=== PATIENT | female | born 1950 | race Two or more races ===

== ENCOUNTER 2020-11-13 13:32 | Emergency (ER) | payer BC ==
[~2020-11-13] VITALS: Ht 152.4 cm; Wt 53.4 kg
[2020-11-13 13:49] VITALS: BP 145/81
[2020-11-13] MEDS ORDERED: ketorolac tromethamine 15mg/ml inj. IM ONE (15:30)
== END 2020-11-13 15:55 | disposition home or self-care (01) ==
LOC: ER 13:32
DX: M54.5 Low back pain (principal); Z88.5 Allergy status to narcotic agent; Z91.013 Allergy to seafood
CPT/HCPCS: 96372; 99283; J1885; 99285

== ENCOUNTER 2022-01-22 16:27 | Emergency (ER) | payer BC ==
[~2022-01-22] VITALS: Ht 152.4 cm; Wt 54.0 kg
[2022-01-22] MEDS ORDERED: iohexol 350MG/ML 100ml bottle IV ONE (17:09)
[2022-01-22 18:54] VITALS: BP 143/98
== END 2022-01-22 18:55 | disposition home or self-care (01) ==
LOC: ER 16:28
DX: R51.9 Headache, unspecified (principal); R11.0 Nausea; R10.84 Generalized abdominal pain; R20.0 Anesthesia of skin; Z85.9 Personal history of malignant neoplasm, unspecified; Z88.5 Allergy status to narcotic agent; Z91.013 Allergy to seafood
CPT/HCPCS: 70450; 70496; 70498; 99285; Q9967

== ENCOUNTER 2022-08-14 11:47 | Emergency (ER) | payer BC ==
[~2022-08-14] VITALS: Ht 152.4 cm; Wt 57.0 kg
[2022-08-14 12:37] VITALS: BP 133/76
[2022-08-14 13:19] LABS: BASOPHILS # (AUTO) 0.1 X10'3 (0-0.2); BASOPHILS % (AUTO) 0.9 % (0-1); EOSINOPHILS # (AUTO) 0.3 X10'3 (0-0.9); EOSINOPHILS % (AUTO) 4.6 % (0-6); HEMATOCRIT 39.5 % (35.0-45.0); HEMOGLOBIN 13.2 g/dl (12.0-16.0); LYMPHOCYTES % (AUTO) 37.6 % (21-51); MEAN CORPUSCULAR HEMOGLOBIN 30.9 PG (27.0-31.0); MEAN CORPUSCULAR HGB CONC 33.4 g/dL (33.0-36.5); MEAN CORPUSCULAR VOLUME 92.5 FL (78-98); MEAN PLATELET VOLUME 8.1 FL (7.4-10.4); MONOCYTES # (AUTO) 0.6 X10'3 (0-0.9); MONOCYTES % (AUTO) 10.8 % (2-12); NEUTROPHILS # (AUTO) 2.5 X10'3 (1.8-7.7); NEUTROPHILS % (AUTO) 46.1 % (42-75); PLATELET COUNT 287 X10'3 (140-440); RED BLOOD COUNT 4.27 X10'6 (4.20-5.60); RED CELL DISTRIBUTION WIDTH 13.3 % (11.5-14.5); WHITE BLOOD COUNT 5.4 X10'3 (4.5-11.0)
[2022-08-14 13:25] LABS: ALANINE AMINOTRANSFERASE 33 U/L (12-78); ALBUMIN 3.9 G/DL (3.4-5.0); ALBUMIN/GLOBULIN RATIO 0.9 (1.1-1.5); ALKALINE PHOSPHATASE 72 IU/L (46-116); ANION GAP 6 (8-16); ASPARTATE AMINO TRANSFERASE 25 U/L (10-37); BILIRUBIN,TOTAL 0.5 MG/DL (0.1-1.0); BLOOD UREA NITROGEN 17 MG/DL (7-18); CALCIUM 9.4 MG/DL (8.5-10.1); CHLORIDE 104 MMOL/L (99-107); CREATININE 0.81 MG/DL (0.40-0.90); GLUCOSE 102 MG/DL (70-104); SODIUM 140 MMOL/L (135-145); TOTAL CARBON DIOXIDE 30.4 MMOL/L (24-32); TOTAL PROTEIN 8.3 G/DL (6.4-8.2); eGFR 70 ML/MIN
[2022-08-14 13:29] LABS: CLARITY,URINE SLIGHTLY CLOUDY (Clear); COLOR,URINE YELLOW (Yellow); GLUCOSE, URINE NEGATIVE (Neg); KETONES,URINE NEGATIVE (Neg); LEUKOCYTE ESTERASE ,URINE LARGE (Neg); NITRITES, URINE POSITIVE (Neg); OCCULT BLOOD,URINE TRACE-INTACT (Neg); PROTEIN,URINE NEGATIVE (Neg); UROBILINOGEN,URINE 0.2 E.U/dL (0.2-1.0)
[2022-08-14 13:30] LABS: UA COLLECTION TYPE CLN CATCH MIDSTREAM
[2022-08-14 13:36] LABS: SQUAMOUS EPITHELIAL CELL,UR FEW /LPF (FEW)
[2022-08-14 13:37] LABS: WBC,URINE TNTC /HPF (0-4)
[2022-08-14 13:38] LABS: BACTERIA,URINE 4+ /HPF (Neg); RBC,URINE 0-2 /HPF (0-2); WBC CLUMPS,URINE FEW /HPF (NEGATIVE)
[2022-08-14] MEDS ORDERED: AMOX-117 PO ×3 (15:05→16:35)
== END 2022-08-14 15:52 | disposition home or self-care (01) ==
LOC: ER 11:47
DX: N39.0 Urinary tract infection, site not specified (principal); Z88.5 Allergy status to narcotic agent; Z91.013 Allergy to seafood
CPT/HCPCS: 36415; 80053; 81001; 85025; 87077; 87088; 87186; 99283

== ENCOUNTER 2023-01-06 12:15 | Emergency (ER) | payer OTHER, BC ==
[~2023-01-06] VITALS: Ht 152.4 cm; Wt 57.6 kg
[~2023-01-06 12:15] MED LIST: AMOX-117 PO
[2023-01-06] MEDS ORDERED: HYDR-3965 PO (14:27)
[2023-01-06 15:09] VITALS: BP 140/87
== END 2023-01-06 15:11 | disposition home or self-care (01) ==
LOC: ER 12:16
DX: R07.89 Other chest pain (principal); R91.8 Other nonspecific abnormal finding of lung field; I10 Essential (primary) hypertension; Z88.5 Allergy status to narcotic agent; Z79.899 Other long term (current) drug therapy; Z91.013 Allergy to seafood
CPT/HCPCS: 71045; 99283

== ENCOUNTER 2023-02-16 15:13 | Emergency (ER) | payer BC, MEDICAID ==
[~2023-02-16] VITALS: Ht 152.4 cm; Wt 60.0 kg
[2023-02-16 17:51] VITALS: BP 140/78
== END 2023-02-16 20:17 | disposition home or self-care (01) ==
LOC: ER 15:13
DX: S22.20XG Unspecified fracture of sternum, subsequent encounter for fracture with delayed healing (principal); I10 Essential (primary) hypertension; Z88.5 Allergy status to narcotic agent; Z91.013 Allergy to seafood; Z79.899 Other long term (current) drug therapy; X58.XXXD Exposure to other specified factors, subsequent encounter
CPT/HCPCS: 71250; 99284

== ENCOUNTER 2023-02-25 09:33 | Emergency (ER) | payer BC, MEDICAID ==
[~2023-02-25] VITALS: Ht 154.9 cm; Wt 60.0 kg
[2023-02-25 10:44] VITALS: BP 130/75
== END 2023-02-25 10:46 | disposition home or self-care (01) ==
LOC: ER 09:34
DX: S20.02XA Contusion of left breast, initial encounter (principal); S20.01XA Contusion of right breast, initial encounter; I10 Essential (primary) hypertension; Z88.5 Allergy status to narcotic agent; Z91.013 Allergy to seafood; V49.9XXA Car occupant (driver) (passenger) injured in unspecified traffic accident, initial encounter; Y93.89 Activity, other specified; Y92.89 Other specified places as the place of occurrence of the external cause; Y99.8 Other external cause status; Z79.899 Other long term (current) drug therapy
CPT/HCPCS: 99281

== ENCOUNTER 2023-03-15 08:44 | Emergency (ER) | payer BC, MEDICAID ==
[~2023-03-15] VITALS: Ht 152.4 cm; Wt 68.2 kg
[2023-03-15 08:56] VITALS: BP 141/78
[2023-03-15] MEDS ORDERED: NAPR-56 PO (09:52)
== END 2023-03-15 09:54 | disposition home or self-care (01) ==
LOC: ER 08:45
DX: S22.20XA Unspecified fracture of sternum, initial encounter for closed fracture (principal); M25.552 Pain in left hip; I10 Essential (primary) hypertension; Z88.5 Allergy status to narcotic agent; Z91.013 Allergy to seafood; V89.2XXA Person injured in unspecified motor-vehicle accident, traffic, initial encounter; Y93.89 Activity, other specified; Y92.89 Other specified places as the place of occurrence of the external cause; Y99.8 Other external cause status
CPT/HCPCS: 99282

== ENCOUNTER 2024-09-07 11:50 | Emergency (ER) | payer BC, MEDICAID ==
[~2024-09-07] VITALS: Ht 152.4 cm; Wt 52.0 kg
[2024-09-07 12:19] VITALS: BP 132/90; PULSE 69; RESP 16; O2SAT 97
[2024-09-07] MEDS ORDERED: LORazepam 0.5 MG tablet PO PRN (14:10)
[2024-09-07] MEDS ORDERED: LORA-268 PO (14:11)
[2024-09-07 14:33] VITALS: TEMP 98.4
== END 2024-09-07 14:49 | disposition home or self-care (01) ==
LOC: ER 11:50
DX: F41.9 Anxiety disorder, unspecified (principal); I10 Essential (primary) hypertension; Z88.5 Allergy status to narcotic agent; Z91.013 Allergy to seafood
CPT/HCPCS: 99283